=== PATIENT | male | born 1955 | race Caucasian/White ===

== ENCOUNTER 2017-03-05 12:47 | Emergency (ER) | payer OTHER ==
[2017-03-05] MEDS ORDERED: NS 1,000 ML IV ONE ×2 (13:18→14:21)
[2017-03-05 13:27] LABS: % IMMATURE GRANULYOCYTES 0.4 % (0.0-1.1); ABSOLUTE IMMATURE GRANULOCYTES 0.04 10^3/uL (0.00-0.10); ADD DIFF? NO; ADD MORPH? YES; ADD SCAN? NO; ATYPICAL LYMPHOCYTE FLAG 10 (0-99); FRAGMENT RBC FLAG 60 (0-99); HEMATOCRIT 22.1 % (40.0-51.0); LEFT SHIFT FLG 0 (0-99); LIPEMIA HEMOLYSIS FLAG 70 (0-99); MEAN CELL HEMOGLOBIN 19.5 pg (27.9-34.1); MEAN PLATELET VOLUME 9.4 fL (8.7-11.7); PLATELET CLUMPS FLAG 0 (0-99); PLATELET COUNT 336 10^3/uL (150-400); RED BLOOD CELL COUNT 3.28 10^6/uL (4.40-6.38)
[2017-03-05 13:36] LABS: HEMOGLOBIN 6.4 g/dL (13.7-17.5)
[2017-03-05 13:37] LABS: MEAN CELL VOLUME 67.4 fL (81.5-99.8); RED CELL DISTRIBUTION WIDTH 20.3 % (11.5-15.2)
[2017-03-05 13:41] LABS: INR 1.12 (0.83-1.16); PROTIME(PATIENT) 14.1 SEC (12.0-15.0)
[2017-03-05 13:43] LABS: ANION GAP 14 mEq/L (8-16); CALCIUM 8.3 mg/dL (8.5-10.4); CARBON DIOXIDE 20 mEq/l (22-31); CHLORIDE 103 mEq/L (97-110); CREATININE 1.1 mg/dL (0.7-1.3); GLOMERULAR FILTRATION RATE > 60; GLUCOSE 146 mg/dL (70-100); POTASSIUM 4.1 mEq/L (3.5-5.2); SODIUM 137 mEq/L (134-144)
[2017-03-05] MEDS ORDERED: PANTOPRAZOLE SODIUM 80 MG in NS 100 ML IV ONE (13:45)
--- NOTE | 2017-03-05 13:47 | EDPHY ---
H & P Stated Complaint: GIB since Sat with sob/lightheaded Time Seen by Provider: 03/05/17 13:17 HPI/ROS: This patient complains of dark tarry stools and lightheadedness. He explains that on Sunday at 1:00 a.m. or so he developed dark tarry stools and then had an episode of vomiting with a similar dark tarry appearance. He rested on Sunday and had some mild abdominal bloating. He was able to orally hydrate in this morning he had a repeat episode of dark red stool well-formed. He developed increasing lightheadedness today came in for evaluation. She reports having had 1 episode of similar stool in 2009 but never went to the hospital for it. He did see his primary care physician for it. He uses occasional NSAIDs including ibuprofen 400 mg yesterday. He also admits to drinking 10 beers a day but stopped 10 days ago because he is developing some epigastric discomfort. ROS: Constitutional: No complaints other than what is listed in HPI do line HEENT: No complaints Pulmonary: He reports dyspnea on exertion today. Cardiovascular: No heart palpitations. No chest pain. GI: As per HPI no vomiting since Sunday morning. : No complaints Integumentary: No skin rash. 10 point ROS is otherwise negative Source: Patient Exam Limitations: No limitations - Personal History Current Tetanus/Diphtheria Vaccine: Unsure Current Tetanus Diphtheria and Acellular Pertussis (TDAP): Unsure - Medical/Surgical History PMH: Alcohol abuse Some a NSAID use Hypertension Hx Asthma: No Hx Chronic Respiratory Disease: No Hx Diabetes: No Hx Cardiac Disease: No Hx Renal Disease: No Hx Cirrhosis: No Hx Alcoholism: Yes Hx HIV/AIDS: No Hx Splenectomy or Spleen Trauma: No Other PMH: MEd-HTN and reflux,ortho/ ETOH. SUrg-wisdom teeth, sinus - Family History Significant Family History: No pertinent family hx - Social History Smoking Status: Former smoker Alcohol Use: Heavy (Patient was drinking 10 beers a day but has not had any alcohol for 10 days he reports.) Drug Use: None - Physical Exam Exam: General Appearance: Alert, no distress. Eyes: Pupils equal and round no pallor or injection. No scleral icterus. ENT, Mouth: Mucous membranes moist. Respiratory: There are no retractions, lungs are clear to auscultation. Cardiovascular: Regular rate and rhythm. Gastrointestinal: Hyperactive bowel sounds, soft, nontender no hepatomegaly. No splenomegaly. Rectal exam: Black appearing stool consistent with melena heme-positive on guaiac testing no external hemorrhoids no tenderness. Prostate feels normal in size and nontender Neurological: GCS 15 with no focal sensory or motor deficits. No asterixis. No tremor. Skin: Warm and dry, no rashes. Patient's son to hand but nontender skin is slightly pale appearing. Musculoskeletal: Neck is supple nontender. Extremities are symmetrical, full range of motion. Psychiatric: Mood and affect are normal. DIFFERENTIAL DIAGNOSIS: After history and physical exam differential diagnosis was considered for GI bleed-likely ulcer with associated melena. Potential anemia, esophageal varices, alcohol hepatitis, gastritis, and said ulcer Constitutional: Initial Vital Signs Temperature (C) 36.6 C 03/05/17 12:52 Heart Rate 84 03/05/17 12:52 Respiratory Rate 16 03/05/17 12:52 Blood Pressure 126/74 H 03/05/17 12:52 O2 Sat (%) 97 03/05/17 12:52 O2 Delivery Mode Room Air Allergies/Adverse Reactions: No Known Allergies Allergy (Verified 03/05/17 13:06) Home Medications: Medication Instructions Recorded LISINOPRIL 08/17/10 Omeprazole 06/27/11 Medical Decision Making - Diagnostics EKG Interpretation: 12 lead EKG performed at 1308 shortly after arrival Indication: GI bleed with dyspnea, rule out TX or other Sinus rhythm at 75 Intervals: Normal throughout ST segments: Normal throughout Overall assessment normal EKG For complete read please refer to trace master ED Course/Re-evaluation: IV Normal saline bolus Protonix 80 mg IV Type and crossed Spoke with our computer information systems instructor on-call Dr. Escobedo regarding the case Bed is requested at [facility] and I spoke with Dr. Cordoba regarding this with initial plan for PCU bed. However, no beds are available at this time nor are there any ICU beds available. I spoke with Dr. Escobedo again and given patient's significant anemia associated with his GI bleed we feel he should go to facility with available beds. Call placed to [facility] for direct admission at 3:28 p.m. Patient remains hemodynamically stable. He is type and cross pending. We do not have octreotide here. At 3:[address] West, hospitalist at [facility] accepts the patient for direct admission to the ICU. Also spoke with Dr. Escobedo regarding this patient he will see the patient at [facility] Patient remains in stable condition with plan as above as of 3:40 p.m.. I discussed the case with Dr. Salinas case there is any interval change the patient's status for ambulance comes to transfer him. - Data Points Laboratory Results: Laboratory Results 03/05/17 13:20 03/05/17 00:55 03/05/17 03/05/17 03/05/17 14:55 13:45 13:20 WBC RBC Hgb Hct MCV MCH MCHC RDW Plt Count MPV Neut % (Auto) Lymph % (Auto) [place] % (Auto) Eos % (Auto) Baso % (Auto) Nucleat RBC Rel Count Absolute Neuts (auto) Absolute Lymphs (auto) Absolute Monos (auto) Absolute Eos (auto) Absolute Basos (auto) Absolute Nucleated RBC Immature Gran % Immature Gran # Platelet Estimate Hypochromasia Microcytic Cells Elliptocytes Smear Review By PT INR Sodium Potassium Chloride Carbon Dioxide Anion Gap BUN Creatinine Estimated GFR Glucose Calcium Total Bilirubin 0.6 mg/dL mg/dL (0.1-1.4) Conjugated Bilirubin 0.4 mg/dL mg/dL (0.0-0.5) Unconjugated Bilirubin 0.2 mg/dL mg/dL (0.0-1.1) AST 39 IU/L IU/L (17-59) ALT 24 IU/L IU/L (21-72) Alkaline Phosphatase 38 IU/L IU/L (38-126) Total Protein 6.0 g/dL L g/dL (6.3-8.2) Albumin 3.3 g/dL L g/dL (3.5-5.0) Stool Occult Bld Scrn POSITIVE H (NEGATIVE) Patient ABO/Rh Pending Antibody Screen Pending Crossmatch IS Only See Detail 03/05/17 03/05/17 03/05/17 13:20 13:20 00:55 WBC 9.48 10^3/uL 10^3/uL (3.80-9.50) RBC 3.28 10^6/uL L 10^6/uL (4.40-6.38) Hgb 6.4 g/dL L g/dL (13.7-17.5) Hct 22.1 % L % (40.0-51.0) MCV 67.4 fL L fL (81.5-99.8) MCH 19.5 pg L pg (27.9-34.1) MCHC 29.0 g/dL L g/dL (32.4-36.7) RDW 20.3 % H % (11.5-15.2) Plt Count 336 10^3/uL 10^3/uL (150-400) MPV 9.4 fL fL (8.7-11.7) Neut % (Auto) 75.2 % H % (39.3-74.2) Lymph % (Auto) 17.6 % % (15.0-45.0) [place] % (Auto) 6.2 % % (4.5-13.0) Eos % (Auto) 0.1 % L % (0.6-7.6) Baso % (Auto) 0.5 % % (0.3-1.7) Nucleat RBC Rel Count 0.0 % % (0.0-0.2) Absolute Neuts (auto) 7.12 10^3/uL H 10^3/uL (1.70-6.50) Absolute Lymphs (auto) 1.67 10^3/uL 10^3/uL (1.00-3.00) Absolute Monos (auto) 0.59 10^3/uL 10^3/uL (0.30-0.80) Absolute Eos (auto) 0.01 10^3/uL L 10^3/uL (0.03-0.40) Absolute Basos (auto) 0.05 10^3/uL 10^3/uL (0.02-0.10) Absolute Nucleated RBC 0.00 10^3/uL 10^3/uL (0-0.01) Immature Gran % 0.4 % % (0.0-1.1) Immature Gran # 0.04 10^3/uL 10^3/uL (0.00-0.10) Platelet Estimate ADEQUATE (ADEQ) Hypochromasia 2+ H Microcytic Cells 2+ H Elliptocytes 1+ H Smear Review By Pending PT 14.1 SEC SEC (12.0-15.0) INR 1.12 (0.83-1.16) Sodium 137 mEq/L mEq/L (134-144) Potassium 4.1 mEq/L mEq/L (3.5-5.2) Chloride 103 mEq/L mEq/L (97-110) Carbon Dioxide 20 mEq/l L mEq/l (22-31) Anion Gap 14 mEq/L mEq/L (8-16) BUN 17 mg/dL mg/dL (7-23) Creatinine 1.1 mg/dL mg/dL (0.7-1.3) Estimated GFR > 60 Glucose 146 mg/dL H mg/dL (70-100) Calcium 8.3 mg/dL L mg/dL (8.5-10.4) Total Bilirubin Conjugated Bilirubin Unconjugated Bilirubin AST ALT Alkaline Phosphatase Total Protein Albumin Stool Occult Bld Scrn Patient ABO/Rh Antibody Screen Crossmatch IS Only Medications Given: Discontinued Medications Sodium Chloride (Ns) 1,000 mls @ 0 mls/hr IV ONCE ONE PRN Reason: Wide Open Stop: 03/05/17 13:19 Last Admin: 03/05/17 13:20 Dose: 1,000 mls Pantoprazole Sodium 80 mg/ (Sodium Chloride) 100 mls @ 200 mls/hr IV EDNOW ONE Stop: 03/05/17 14:14 Last Admin: 03/05/17 14:00 Dose: 100 mls Departure - Departure Disposition: [facility] Clinical Impression: GI bleed Qualifiers: GI bleed type/associated pathology: melena Qualified Code(s): K92.1 - Melena Anemia Qualifiers: Anemia type: unspecified type Qualified Code(s): D64.9 - Anemia, unspecified Condition: Serious Referrals: Seth Green DO [Primary Care Provider] - As per Instructions
[2017-03-05 14:05] LABS: PLATELET ESTIMATE ADEQUATE (ADEQ)
[2017-03-05 14:06] LABS: ELLIPTOCYTES 1+; HYPOCHROMIA 2+; MICROCYTES 2+
[2017-03-05] MEDS ORDERED: ONDANSETRON 4 MG/2 ML VIAL IVP PRN (14:21)
[2017-03-05] MEDS ORDERED: ONDANSETRON DISINTEGRATING 4 MG TAB PO PRN (14:21)
[2017-03-05] MEDS ORDERED: OCTREOTIDE ACETATE 500 MCG in D5W 50 ML IV SCH (14:30)
[2017-03-05 14:41] LABS: ALBUMIN 3.3 g/dL (3.5-5.0); BILIRUBIN,TOTAL 0.6 mg/dL (0.1-1.4); BILIRUBIN-CONJUGATED 0.4 mg/dL (0.0-0.5); BILIRUBIN-UNCONJUGATED 0.2 mg/dL (0.0-1.1)
[2017-03-05] MEDS ORDERED: OCTREOTIDE ACETATE 50 MCG/ML INJ IVP ONE (15:22)
[2017-03-05 16:07] VITALS: BP 122/74
[2017-03-05 16:35] LABS: % IMMATURE GRANULYOCYTES 0.2 % (0.0-1.1); ABSOLUTE IMMATURE GRANULOCYTES 0.02 10^3/uL (0.00-0.10); ADD DIFF? NO; ADD MORPH? YES; ADD SCAN? NO; ATYPICAL LYMPHOCYTE FLAG 10 (0-99); FRAGMENT RBC FLAG 40 (0-99); HEMATOCRIT 21.3 % (40.0-51.0); LEFT SHIFT FLG 0 (0-99); LIPEMIA HEMOLYSIS FLAG 70 (0-99); MEAN CELL HEMOGLOBIN 19.4 pg (27.9-34.1); MEAN PLATELET VOLUME 10.5 fL (8.7-11.7); PLATELET CLUMPS FLAG 30 (0-99); PLATELET COUNT 157 10^3/uL (150-400); RED BLOOD CELL COUNT 3.14 10^6/uL (4.40-6.38)
[2017-03-05 16:36] LABS: HEMOGLOBIN 6.1 g/dL (13.7-17.5); MEAN CELL HEMOGLOBIN CONCENTR. 28.6 g/dL (32.4-36.7); MEAN CELL VOLUME 67.8 fL (81.5-99.8)
--- NOTE | 2017-03-05 16:36 | CPEKG ---
Heart Rate: 75 RR Interval: 800 P-R Interval: 160 QRSD Interval: 90 QT Interval: 404 QTC Interval: 452 P [place]: 17 QRS [place]: 8 T Wave [place]: 36 EKG Severity - NORMAL ECG - EKG Impression: SINUS RHYTHM Electronically Signed By: Nusrat Urbina 06-Mar-2017 17:05:06
[2017-03-05 16:50] LABS: HYPOCHROMIA 3+; MICROCYTES 2+; PLATELET ESTIMATE ADEQUATE (ADEQ)
[2017-03-05 17:16] VITALS: PULSE 77; RESP 20; TEMP 98.6; O2SAT 97
[2017-03-05] MEDS ORDERED: PANTOPRAZOLE SODIUM 40 MG in NS 100 ML IV SCH (21:00)
== END 2017-03-05 17:16 | disposition short-term general hospital (02) ==
LOC: CED 12:47 → UNDOADMIN 14:20 → CEDHOLD 14:20 → CED 17:16
DX: K92.2 Gastrointestinal hemorrhage, unspecified (principal); D64.9 Anemia, unspecified; I10 Essential (primary) hypertension; Z87.891 Personal history of nicotine dependence
CPT/HCPCS: 80048-PO; 80076-PO; 82270-PO; 85025-PO; 85610-PO; 96365